=== PATIENT | male | born 1955 | race Caucasian/White ===

== ENCOUNTER 2017-05-08 22:21 | Emergency (ER) | END 2017-05-09 11:02 | DX: R45.851 Suicidal ideations (principal) | CPT/HCPCS: 36415; 80053; 80306; 80307; 81003; 85025; Z7502 ==

== ENCOUNTER 2017-06-19 18:10 | Emergency (ER) | payer OTHER ==
[~2017-06-19] VITALS: Ht 190.5 cm; Wt 114.0 kg
[~2017-06-19 18:10] MED LIST: CHOL100062 PO; GABA300C16 PO; MULTI PO; PROP10TA6; PROP80CA3 PO; ZIPR20CA7
[2017-06-19 18:25] VITALS: Ht 190.5 cm; Wt 114.0 kg
[2017-06-19] MEDS ORDERED: ALBUTEROL 0.083% (NEB) 2.5 MG/3 ML AMP NEB STA (19:17)
[2017-06-19] MEDS ORDERED: IPRATROPIUM (NEB) 0.5 MG/2.5 ML AMP NEB STA (19:17)
[2017-06-19] MEDS ORDERED: predniSONE 20 MG TAB PO STA (19:17)
--- NOTE | 2017-06-19 20:38 | RADRPT ---
PROCEDURE: XR Chest. CLINICAL INDICATION: cough, wheezing TECHNIQUE: Single frontal view of the chest was obtained COMPARISON: None FINDINGS: The heart and mediastinum are within normal limits. The lungs are clear. There is no pleural effusion or pneumothorax. The osseous structures are grossly unremarkable. IMPRESSION: 1. No acute cardiopulmonary disease. RPTAT:AAJJ Physician Derrick Date Time Electronically viewed and signed by Lauren Rocha Physician on 06/19/2017 20:37 QL/
[2017-06-19] MEDS ORDERED: AZIT250T94 PO (21:11)
[2017-06-19] MEDS ORDERED: ALBU8.5H3 INH (21:12)
[2017-06-19] MEDS ORDERED: PRED20TA PO (21:12)
[2017-06-19 21:45] VITALS: BP 149/86; PULSE 89; RESP 20; TEMP 98
--- NOTE | 2017-06-20 02:59 | ERD ---
ER Documentation Chief Complaint Chief Complaint COUGH WITH ST AT HOME BUT NO THERMOMETER HPI Patient is a 62-year-old male with a past medical history of schizoaffective disorder and s/p cholecystectomy who presents ED for concerns of throat pain and cough 6 days. Patient states that his cough is productive with clear phlegm production. Patient reports generalized body aches. Patient reports throat pain however he denies any trismus, drooling or hyperextension of his neck. Patient denies any chest pain, shortness of breath, left upper extremity pain or loss of consciousness. Patient states that he did have some chills and "diaphoresis" earlier in the day. Patient denies any fevers. Patient states she has been taking TheraFlu for his symptoms with minimal relief. Denies any abdominal pain, nausea, vomiting or diarrhea. Patient states that his roommate is sick with "flu symptoms" at this time. Patient denies any travel. Patient denies any homicidal or suicidal ideations at this time. Patient does report smoking cigars. ROS All systems reviewed and are negative except as per history of present illness. Medications Home Meds Active Scripts Albuterol Sulfate* (Proair HFA*) 8.5 Gm Hfa.aer.ad, 2 PUFF INH Q4, #1 INHALER Prov:LÓPEZ POTTER PA-C 06/19/17 Prednisone* (Prednisone*) 20 Mg Tab, 40 MG PO DAILY for 4 Days, TAB Prov:LÓPEZ POTTER PA-C 06/19/17 Azithromycin* (Zithromax*) 250 Mg Tablet, 250 MG PO .KleberPACK DIRECTED, #6 TAB TAKE 500 MG (2 TABS) THE FIRST DAY THEN 250 MG (1 TAB) DAYS 2-5 Prov:LÓPEZ POTTER PA-C 06/19/17 Reported Medications Propranolol Hcl* (Propranolol Hcl*) 80 Mg Cap.sa.24h, 80 MG PO TID, TAB 05/09/17 Multivitamins* (Theragran*) 1 Tab Tab, 1 TAB PO DAILY, TAB 05/09/17 Cholecalciferol* (Vitamin D3*) 1,000 Unit Tablet, 1000 UNIT PO DAILY, TAB 05/09/17 Gabapentin* (Gabapentin*) 300 Mg Capsule, 300 MG PO, #60 CAP TAKE 1 CAP 300MG BY MOUTH IN THE MORNING AND NOON, THEN 4 CAPS 300MG AT BEDTIME 10/4/17 Propranolol Hcl* (Propranolol Hcl*) 10 Mg Tablet, 20 MG 10/15/11 Ziprasidone* (Geodon*) 20 Mg Capsule 10/15/11 Allergies Allergies: Coded Allergies: No Known Allergy (Unverified , 06/19/17) PMhx/Soc History of Surgery: Yes (cholecystectomy) Anesthesia Reaction: No Hx Neurological Disorder: No Hx Respiratory Disorders: No Hx Cardiac Disorders: No Hx Psychiatric Problems: Yes (schizoaffective disorder, SI) Hx Miscellaneous Medical Probl: No Hx Alcohol Use: No Hx Substance Use: No Hx Tobacco Use: Yes Smoking Status: Current some day smoker Physical Exam Vitals Vital Signs Date Time Temp Pulse Resp B/P Pulse Ox O2 Delivery O2 Flow Rate FiO2 06/19/17 21:45 98.0 89 20 149/86 97 06/19/17 19:27 74 20 94 06/19/17 18:25 98.0 77 20 149/86 96 Physical Exam GENERAL: Well-developed, well-nourished male. Appears in no acute distress. Speaking in full sentences. HEAD: Normocephalic, atraumatic. No deformities or ecchymosis. EYE: Pupils equal, round, and reactive to light. EOMs intact. No conjunctival erythema. No eye discharge. ENT: External ear without any masses or tenderness. Auditory canals clear bilaterally. TM visualized bilaterally, non-erythematous, non-bulging. Nasal mucosa pink with no discharge. Oropharynx is erythematous without any tonsillar erythema or exudates. No uvula deviation. No kissing tonsils. NECK: Supple. Normal ROM of the neck. No meningeal signs. LUNGS: Faint wheezing noted in bilateral lower lobes. No rhonchi or rales. HEART: Regular rate and rhythm. No murmurs, rubs or gallops. EXTREMITIES: Equal pulses bilaterally. No peripheral clubbing, cyanosis or edema. No unilateral leg swelling. NEUROLOGIC: Alert and oriented to person, place and time. Moving all four extremities. 5/5 strength in all extremities. Normal speech. Steady gait. SKIN: Normal color. Warm and dry. No rashes or lesions. Results 24 hrs Current Medications Medications (Trade) Dose Ordered Sig/Concetta Route PRN Reason Start Time Stop Time Status Last Admin Dose Admin Albuterol (Proventil 0.083% (Neb)) 5 mg ONCE STAT NEB 06/19/17 19:17 06/19/17 19:19 DC 06/19/17 19:27 Ipratropium [place] (Atrovent 0.02% (Neb)) 0.5 mg ONCE STAT NEB 06/19/17 19:17 06/19/17 19:19 DC 06/19/17 19:27 Prednisone (Prednisone) 60 mg ONCE STAT PO 06/19/17 19:17 06/19/17 19:19 DC 06/19/17 19:38 Procedures/MDM ED COURSE: The patient was stable throughout ED course. I kept the patient and/or family informed of laboratory and diagnostic imaging results throughout the ED course. EKG: Read by Dr. Fong, attending physician. EKG shows normal sinus rhythm at a rate of [address] elevations were noted. DIAGNOSTIC IMAGING: Read by radiologist. DIAGNOSTIC IMAGING REPORT Patient: CINDY WALLACE : 1955 Age: 62 Sex: M MR #: [id number] DOS: 06/19/171916 Ordering MD: LÓPEZ POTTER PA-C Location: [facility] Room/Bed: PROCEDURE: XR Chest. CLINICAL INDICATION: cough, wheezing TECHNIQUE: Single frontal view of the chest was obtained COMPARISON: None FINDINGS: The heart and mediastinum are within normal limits. The lungs are clear. There is no pleural effusion or pneumothorax. The osseous structures are grossly unremarkable. IMPRESSION: 1. No acute cardiopulmonary disease. RPTAT:AAJJ Physician Derrick Date Time Electronically viewed and signed by Physician Derrick on 06/19/2017 20:37 QL/ MEDICATIONS GIVEN: Albuterol, ipratropium, prednisone Patient tolerated medication well with no adverse reactions. Patient reported improvement in pain. MEDICAL DECISION MAKING: This is a 62-year-old male who presents to the ED for concerns of cough and throat pain 6 days. Patient denied any fevers. Patient that his roommate was a sick contact. Vital signs were reviewed. Patient was afebrile. Patient was not hypoxic. ENT exam was normal. Lung exam did reveal bilateral faint wheezing. Patient was given a breathing treatment here in the ED. Patient was also given prednisone. Upon reexamination, patient was noted to have improved breath sounds. Patient also felt that his symptoms are improved. EKG was obtained given that patient did state he had "diaphoresis." Patient denied any chest pain, shortness of breath, left upper extremity pain or loss consciousness. EKG was within normal limits, showed normal sinus rhythm, no STEMI. Low suspicion for ACS, pericarditis, arrhythmia. Chest x-ray showed no acute cardiopulmonary disease. At this time, the patient's presentation is most consistent with acute bronchitis. I will treat the patient with a course of antibiotics. Patient was advised to avoid smoking. Low suspicion for pneumonia, meningitis, sinusitis, otitis externa, acute otitis media, strep pharyngitis, epiglottitis, CHF, pleural effusion, pneumothorax. Patient felt that his symptoms were much improved and felt comfortable going home. Patient was nontoxic, [id number] prior to discharge. PRESCRIPTIONS: Z-Dennys, albuterol, prednisone DISCHARGE: At this time, patient is stable for discharge and outpatient management. Patient is given a copy of imaging studies obtained today. Supportive therapies such as OTC throat lozenges, salt water gurgles, popsicles and jello discussed. I have instructed the patient to follow-up with his/her primary care physician in 1-2 days. I have instructed the patient to promptly return to the ER for any new or worsening symptoms including increased pain, swelling, fever, nausea, vomiting, weakness or difficulty breathing. The patient and/or family expressed understanding of and agreement with this plan. All questions were answered. Home care instructions were provided. Patients blood pressure was elevated (>120/80) but appears stable without evidence of hypertensive emergency, hypertensive urgency or end-organ failure. I had discussion with the patient about the risks of hypertension. I have advised the patient to follow up with his/her primary care physician for outpatient monitoring and treatment for hypertension in 2-3 days. I have instructed the patient to return to the ER for any new or worsening symptoms including chest pain, shortness of breath, headache, blurred vision, confusion, nausea, vomiting or LOC. Disclaimer: Inadvertent spelling and grammatical errors are likely due to EHR/ dictation software use and do not reflect on the overall quality of patient care. Also, please note that the electronic time recorded on this note does not necessarily reflect the actual time of the patient encounter. Departure Diagnosis: Primary Impression: Acute bronchitis Condition: Stable Patient Instructions: Bronchitis With Wheezing (Adult) Referrals: [facility] YOU HAVE RECEIVED A MEDICAL SCREENING EXAM AND THE RESULTS INDICATE THAT YOU DO NOT HAVE A CONDITION THAT REQUIRES URGENT TREATMENT IN THE EMERGENCY DEPARTMENT. FURTHER EVALUATION AND TREATMENT OF YOUR CONDITION CAN WAIT UNTIL YOU ARE SEEN IN YOUR DOCTORS OFFICE WITHIN THE NEXT 1-2 DAYS. IT IS YOUR RESPONSIBILITY TO MAKE AN APPOINTMENT FOR FOLOW-UP CARE. IF YOU HAVE A PRIMARY DOCTOR --you should call your primary doctor and schedule an appointment IF YOU DO NOT HAVE A PRIMARY DOCTOR YOU CAN CALL OUR PHYSICIAN REFERRAL HOTLINE AT IF YOU CAN NOT AFFORD TO SEE A PHYSICIAN YOU CAN CHOSE FROM THE FOLLOWING [facility] [address] [facility] [address] [facility] [place] [address] [facility] [address] [facility] [address] [facility]. [facility]. [address] [facility] [facility] YOU HAVE RECEIVED A MEDICAL SCREENING EXAM AND THE RESULTS INDICATE THAT YOU DO NOT HAVE A CONDITION THAT REQUIRES URGENT TREATMENT IN THE EMERGENCY DEPARTMENT. FURTHER EVALUATION AND TREATMENT OF YOUR CONDITION CAN WAIT UNTIL YOU ARE SEEN IN YOUR DOCTORS OFFICE WITHIN THE NEXT 1-2 DAYS. IT IS YOUR RESPONSIBILITY TO MAKE AN APPOINTMENT FOR FOLOW-UP CARE. IF YOU HAVE A PRIMARY DOCTOR --you should call your primary doctor and schedule and appointment IF YOU DO NOT HAVE A PRIMARY DOCTOR YOU CAN CALL OUR PHYSICIAN REFERRAL HOTLINE AT . IF YOU CAN NOT AFFORD TO SEE A PHYSICIAN YOU CAN CHOSE FROM THE FOLLOWING [facility] INSTITUTIONS: [facility] [address] [place], [place] [id number] [place] [address] [address] [place] [address] [facility] [address] [place] [address] Additional Instructions: Call your primary care doctor TOMORROW for an appointment during the next 1-2 days.See the doctor sooner or return here if your condition worsens before your appointment time. LÓPEZ POTTER PA-C Jun 20, 2017 02:57
== END 2017-06-19 21:48 | disposition home or self-care (01) ==
LOC: FTE 18:10
DX: J20.9 Acute bronchitis, unspecified (principal); F17.210 Nicotine dependence, cigarettes, uncomplicated; R06.02 Shortness of breath
CPT/HCPCS: 71010; 87400; 93005; 94664; J7512; Z7502; Z7610